=== PATIENT | female | born 1995 | race Caucasian/White ===

== ENCOUNTER 2024-01-31 11:30 | Emergency (ER) | payer OTHER, SELFPAY ==
[2024-01-31 11:32] VITALS: BP 105/76
--- NOTE | 2024-01-31 12:01 | ED.GENMED ---
History of Present Illness
General
Chief Complaint: Musculo-Skeletal Complaint
Source: patient
Exam Limitations: none
Time Seen by Provider: 01/31/24 11:54
Travel History
Have you had any contact with someone who has COVID-19?: No
Do you have any symptoms of coronavirus? Fever > 100 degrees, chills, cough, shortness of breath, sore throat, loss of taste or smell, muscle aches, or headache?: No
History of Present Illness
History of Present Illness:
28-year-old female jammed her foot last week. Complaining of ongoing pain. Most of the pain is at the right first great toe
Past History
Past History
ED Past Medical History: None
ED Past Surgical History: None
Social History
Tobacco: Smoker
Alcohol: Occasional
Personal: Single
Living: with family
Phy Exam
Physical Exam
Physical Exam:
General: Nontoxic appearing in no distress
Skin: Warm and dry, no rash
Neuro: Alert, nontoxic, grossly nonfocal
Psychiatric: Good eye contact and appropriate
Musculoskeletal: Tenderness at the first MTP joint. No deformity. No ecchymosis. However ecchymotic at the the distal second and third metatarsal at the MTP joints. Nontender however. No open wounds.
Course
Orders/Labs/Results
Orders:
Orders
01/31/24 11:35
CR Toe(s) Min 2 Vw Right Urgent
Comment:
Reason For Exam: injury/pain
Indicate Which Toe:: Great
01/31/24 12:00
Valentin Tape Right-Treatment ONCE
Cast Shoe Right-Treatment ONCE
Vital Signs
Initial and Last Documented VS:
Initial Vital Signs
Temp Pulse Resp BP Pulse Ox
98.7 F 69 16 105/76 98
01/31/24 11:32 01/31/24 11:32 01/31/24 11:32 01/31/24 11:32 01/31/24 11:32
Last Documented Vital Signs
Temp Pulse Resp BP Pulse Ox
98.7 F 69 16 105/76 98
01/31/24 11:32 01/31/24 11:32 01/31/24 11:32 01/31/24 11:32 01/31/24 11:32
*Radiology
Radiology exam reviewed: radiology read reviewed
*Pulse Oximetry
Patient hypoxic: no
Comment: Fracture nondisplaced 7.5 mm medial aspect base of the proximal phalanx of the great toe
*Critical Care Note
Total Time (30-74mins, 75-104mins- exclusive of procedures): Not Applicable
Update Note
Update Note:
Cast shoe and orthopedic follow-up
ED Attending Note
-
Portions of this chart may have been created with voice recognition software.� Occasional wrong word or��sound alike� substitutions may have occurred due to the inherent limitations of voice recognition software.
Discharge Plan
Departure
Patient Disposition: Home (Routine Discharge)
Date of Disposition: 01/31/24
Time of Disposition: 12:03
Patient with high blood pressure during this ER visit?: No
Discharge Problem:
Fracture right first great toe
Instructions: Toe Fracture (DC)
Prescriptions:
No Action
No Current Medications
0
Referrals:
Fifi Gray, DO [Active] - Follow up in 2-3 days
Interventions
Interventions:
*ED COVID-19 Vaccine History Last Done: 01/31/24 11:32
== END 2024-01-31 12:24 | disposition home or self-care (01) ==
LOC: EMR 11:30
PROVIDERS: EMERGENCY PHYSICIAN Emergency Medicine
DX: S92.414A Nondisplaced fracture of proximal phalanx of right great toe, initial encounter for closed fracture (principal); S90.121A Contusion of right lesser toe(s) without damage to nail, initial encounter; W22.8XXA Striking against or struck by other objects, initial encounter; F17.200 Nicotine dependence, unspecified, uncomplicated
CPT/HCPCS: 99283; 73660